=== PATIENT | female | born 1935 | race Caucasian/White ===

== ENCOUNTER 2022-03-04 18:45 | Emergency (ER) | payer MEDICARE, SELFPAY ==
[2022-03-04] VITALS (7 sets, daily range): BP systolic 134–170; BP diastolic 66–78; PULSE 69–74; RESP 18; TEMP 36.8; O2SAT 94–98
--- NOTE | 2022-03-04 18:56 | DI.RAD.S_ITS ---
PROCEDURE: XR WRIST RT MIN 3V INDICATIONS: Wrist pain post fall TECHNIQUE: 4 views of the wrist were acquired. COMPARISON: None. FINDINGS: Bones: On the lateral view there is a lucency in the distal radius which extends to the articular surface and is suspicious for fracture. This is not seen on the other views. No fractures or dislocations. No suspicious bony lesions. Scaphoid view: Intact scaphoid. Soft tissues: No suspicious soft tissue calcifications. IMPRESSION: Suspected right distal radius fracture. Dictated by: Alex Nava M.D. on 03/04/2022 at 20:32 Approved by: Alex Nava M.D. on 03/04/2022 at 20:34
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
== END 2022-03-04 21:20 | disposition home or self-care (01) ==
PROVIDERS: Emergency Provider Emergency Medicine; PCP Nurse Practitioner Family
DX: S60.211A Contusion of right wrist, initial encounter (principal); W19.XXXA Unspecified fall, initial encounter; F03.90 Unspecified dementia, unspecified severity, without behavioral disturbance, psychotic disturbance, mood disturbance, and anxiety
CPT/HCPCS: 73110; 99281; 99283

== ENCOUNTER → 2022-03-22 11:47 | Outpatient (CLI) | payer MEDICARE, SELFPAY ==
[2022-03-22 13:10] LABS: Add Manual Diff / Slide Review NO; Basophils Absolute Auto 100 /uL (0-100); Basophils Percent Auto 1.1 % (0-2); Eosinophils Absolute Auto 300 /uL (0-450); Eosinophils Percent Auto 4.9 % (2-4); Hematocrit 33.2 % (36-46); Hemoglobin 11.3 g/dL (12.0-16.0); Lymphocytes Absolute Auto 600 /uL (1100-4500); Lymphocytes Percent Auto 10.6 % (25-40); Mean Corpuscular Hemoglobin 31.3 PG (26-34); Monocytes Absolute Auto 700 /uL (0-900); Monocytes Percent Auto 12.6 % (3-14); Neutrophils Absolute Auto 4200 /uL (1500-7000); Neutrophils Percent Auto 70.8 % (50-75); Platelet Count 199 X10^3/uL (150-400); Red Blood Cell Count 3.61 X10^6/uL (4.0-5.2); Red Cell Distribution Width 14.7 % (11.6-14.8); White Blood Cell Count 5.9 X10^3/uL (4.5-11.0)
[2022-03-22 13:26] LABS: Alanine Aminotransferase 14 IU/L (<35); Albumin 3.2 g/dL (3.5-5.0); Alkaline Phosphatase 84 U/L (38-126); Aspartate Aminotransferase 25 IU/L (14-36); BUN Creatinine Ratio 20.5 (6-22); Bilirubin Total 0.4 mg/dL (0.2-1.3); Blood Urea Nitrogen 36 mg/dL (7-17); Calcium 9.3 mg/dL (8.4-10.2); Carbon Dioxide 34 mmol/L (22-32); Chloride 100 mmol/L (98-107); Estimated Glomerular Filt Rate 28 mL/min (>60); Globulin 3.1 g/dL (1.7-4.1); Glucose 73 mg/dL (80-110); HEMOLYSIS < 15 (0-50); Potassium 4.7 mmol/L (3.4-5.1); Sodium 135 mmol/L (137-145); Total Protein 6.3 g/dL (6.3-8.2)
[2022-03-22 14:02] LABS: Thyroid Stimulating Hormone 1.57 uIU/mL (0.47-4.68)
[2022-03-22 14:12] LABS: Vitamin B12 311 pg/mL (239-931)
== END ==
PROVIDERS: PCP Nurse Practitioner Family; Referring Provider Nurse Practitioner Family; Visit Provider Nurse Practitioner Family
DX: D64.9 Anemia, unspecified (principal); R41.0 Disorientation, unspecified
CPT/HCPCS: 36415; 80053; 82607; 84443; 85025

== ENCOUNTER 2022-12-14 15:52 | Emergency (ER) | payer MEDICARE, SELFPAY ==
[2022-12-14] VITALS (8 sets, daily range): BP systolic 112–136; BP diastolic 56–68; PULSE 52–61; RESP 16–20; TEMP 36.1–36.5; O2SAT 93–97
--- NOTE | 2022-12-14 16:56 | PC.NURSE ---
Patient is Comfort Measures, discussed expectations with son, states his focus is on finding potential acute problems with blood work, possible IV fluids for dehydration, and urine sample. Son is not interested in potential scans. Pt is oriented to self and resides in a memory care unit.
[2022-12-14 18:14] LABS: Add Manual Diff / Slide Review NO; Basophils Absolute Auto 0 /uL (0-100); Basophils Percent Auto 0.7 % (0-2); Eosinophils Absolute Auto 200 /uL (0-450); Eosinophils Percent Auto 2.1 % (2-4); Hematocrit 36.5 % (36-46); Lymphocytes Absolute Auto 600 /uL (1100-4500); Lymphocytes Percent Auto 8.7 % (25-40); Mean Corpuscular Hemoglobin 31.3 PG (26-34); Mean Corpuscular Volume 94.7 fL (80-100); Monocytes Absolute Auto 800 /uL (0-900); Monocytes Percent Auto 10.6 % (3-14); Neutrophils Absolute Auto 5800 /uL (1500-7000); Neutrophils Percent Auto 77.9 % (50-75); Platelet Count 190 X10^3/uL (150-400); Red Blood Cell Count 3.85 X10^6/uL (4.0-5.2); Red Cell Distribution Width 14.1 % (11.6-14.8); White Blood Cell Count 7.4 X10^3/uL (4.5-11.0)
[2022-12-14 18:22] LABS: HEMOLYSIS < 15 (0-50)
[2022-12-14 18:34] LABS: Alanine Aminotransferase 21 IU/L (<35); Albumin 3.6 g/dL (3.5-5.0); Alkaline Phosphatase 83 U/L (38-126); Aspartate Aminotransferase 26 IU/L (14-36); BUN Creatinine Ratio 17.9 (6-22); Bilirubin Total 0.7 mg/dL (0.2-1.3); Blood Urea Nitrogen 39 mg/dL (7-17); Calcium 9.6 mg/dL (8.4-10.2); Carbon Dioxide 27 mmol/L (22-32); Chloride 104 mmol/L (98-107); Creatine Kinase 81 U/L (30-135); Estimated Glomerular Filt Rate 21 mL/min (>60); Globulin 3.5 g/dL (1.7-4.1); Glucose 128 mg/dL (80-110); Lipase 280 U/L (23-300); Magnesium 2.1 mg/dL (1.6-2.3); Potassium 4.9 mmol/L (3.4-5.1); Sodium 137 mmol/L (137-145); Total Protein 7.1 g/dL (6.3-8.2)
[2022-12-14 18:45] LABS: Troponin I 0.028 ng/mL (0.01-0.034)
--- NOTE | 2022-12-14 19:40 | ED.SYNCOPE ---
HPI - Syncope General Chief Complaint: Syncope Stated Complaint: Unresponsive Time Seen by Provider: 12/14/22 19:40 Source: patient Mode of arrival: Ambulatory Limitations: no limitations History of Present Illness HPI narrative: Patient is a 87-year-old female history of dementia lives at [facility]. She was out in the atrium ?sending herself? when she passed out. Staff reported that she was unresponsive however EMS found her quite responsive. She has no complaints she did not fall or hit her head she is not on any anticoagulation. No fever no complaints. After waiting in the emergency department for 4-1/2 hours son states that she is back to her normal state of health and is ready to go. She seems to be moving all of her extremities she is quite hard of hearing and overall an extremely poor historian most history is from chart and son. Related Data Allergies Allergy/AdvReac Type Severity Reaction Status Date / Time amlodipine Allergy Unknown Verified 12/14/22 16:08 lisinopril Allergy Unknown Verified 12/14/22 16:08 metoprolol Allergy Unknown Verified 12/14/22 16:08 propofol Allergy Unknown Verified 12/14/22 16:08 valsartan Allergy Unknown Verified 12/14/22 16:08 Exam Initial Vital Signs Initial Vital Signs: Vital Signs Temperature 96.9 F L 12/14/22 16:02 Pulse Rate 52 L 12/14/22 16:02 Respiratory Rate 16 12/14/22 16:02 Blood Pressure 136/62 12/14/22 16:02 Pulse Oximetry 95 12/14/22 16:02 Oxygen Delivery Method Room Air 12/14/22 16:02 GENERAL: Alert elderly hard of hearing 87-year-old, reaching off the gurney trying to get a blanket off the floor HEENT: Head atraumatic,EOMI, pupils reactive, face symmetric, moist mucous membranes CARDIOVASCULAR: Regular rate and rhythm without murmurs, rubs or gallops. RESPIRATORY: Breath sounds equal bilaterally, no wheezes rales or rhonchi. ABDOMEN: Soft, nontender. Normoactive bowel sounds all 4 quadrants. No guarding or rebound. EXTREMITIES: Normal range of motion, no clubbing or edema. Neurovascularly intact NEUROLOGICAL: Moving all extremity SKIN: Warm, dry, no laceration, no petechiae, no rashes or lesions. Course Orders Ordered: ED Orders 12/14/22 17:30 EKG-12 Lead Stat 12/14/22 17:58 Complete Blood Count AUTO DIFF Stat Comprehensive Metabolic Panel Stat Lipase Stat Magnesium Stat Troponin & CK Cardiac Panel Stat Vital Signs Vital signs: Vital Signs - 8 hr 12/14/22 16:02 12/14/22 16:11 12/14/22 16:15 Temperature 96.9 F L 97.7 F Pulse Rate 52 L 55 L Respiratory Rate 16 18 Blood Pressure 136/62 Pulse Oximetry 95 93 Oxygen Delivery Method Room Air Room Air 12/14/22 16:31 12/14/22 17:35 12/14/22 18:00 Temperature Pulse Rate 61 60 57 L Respiratory Rate 20 18 Blood Pressure 119/56 L 112/59 L 121/60 Pulse Oximetry 94 96 97 Oxygen Delivery Method Room Air Room Air Room Air 12/14/22 19:00 Temperature Pulse Rate 60 Respiratory Rate 20 Blood Pressure 132/60 Pulse Oximetry 97 Oxygen Delivery Method Room Air MDM - Syncope Lab Data 12/14/22 17:58 12/14/22 17:58 Labs: Lab Results 12/14/22 12/14/22 Range/Units 17:58 17:58 WBC 7.4 (4.5-11.0) X10^3/uL RBC 3.85 L (4.0-5.2) X10^6/uL Hgb 12.0 (12.0-16.0) g/dL Hct 36.5 (36-46) % MCV 94.7 (80-100) fL MCH 31.3 (26-34) PG MCHC 33.0 (30-36) % RDW 14.1 (11.6-14.8) % Plt Count 190 (150-400) X10^3/uL Neut % (Auto) 77.9 H (50-75) % Lymph % (Auto) 8.7 L (25-40) % [place] % (Auto) 10.6 (3-14) % Eos % (Auto) 2.1 (2-4) % Baso % (Auto) 0.7 (0-2) % Neut # (Auto) 5800 (9997-9342) /uL Lymph # (Auto) 600 L (8804-9013) /uL [place] # (Auto) 800 (0-900) /uL Eos # (Auto) 200 (0-450) /uL Baso # (Auto) 0 (0-100) /uL Sodium 137 (137-145) mmol/L Potassium 4.9 (3.4-5.1) mmol/L Chloride 104 (98-107) mmol/L Carbon Dioxide 27 (22-32) mmol/L BUN 39 H (7-17) mg/dL Creatinine 2.18 H (0.52-1.04) mg/dL Estimated GFR 21 L (>60) mL/min BUN/Creatinine Ratio 17.9 (6-22) Glucose 128 H (80-110) mg/dL Calcium 9.6 (8.4-10.2) mg/dL Magnesium 2.1 (1.6-2.3) mg/dL Total Bilirubin 0.7 (0.2-1.3) mg/dL AST 26 (14-36) IU/L ALT 21 (<35) IU/L Alkaline Phosphatase 83 (38-126) U/L Total Creatine Kinase 81 (30-135) U/L CK-MB (CK-2) TNP CK-MB (CK-2) Rel Index TNP Troponin I 0.028 (0.01-0.034) ng/mL Total Protein 7.1 (6.3-8.2) g/dL Albumin 3.6 (3.5-5.0) g/dL Globulin 3.5 (1.7-4.1) g/dL Albumin/Globulin Ratio 1.0 (1.0-2.8) Lipase 280 (23-300) U/L ECG Data Interpretation: Normal sinus rhythm rate 59 OH interval 164 QRS 94 QTC 460 MDM Narrative Medical decision making narrative: Patient is an 87-year-old female history of dementia presents today after syncopal/unresponsive episode. Details about the event are overall very minimal. However son states patient is back at baseline there is no evidence of UTI no electrolyte abnormality or significant leukocytosis. She is found to have creatinine of 2.18, 1 year ago she would a creatinine of 1.76. Possible mild dehydration versus natural progression of chronic kidney disease. She is not on anticoagulation there is no history of head trauma moving all extremities no need for head CT at this time. Her vitals are stable she is not tachycardic though it does appear she is on atenolol she is not hypotensive. Seems back to her normal baseline status recommended close follow-up son is happy to take her back to [facility] memory care Discharge Plan Departure Patient Disposition: Home Clinical Impression: Near syncope Instructions: DI for Syncope in Adults (Fainting) Activity Restrictions/Additional Instructions: *You have been diagnosed with near syncope *What to do: Blood work today is overall reassuring. *Continue to take medications as directed *Follow up with your primary care provider in 2-3 days or call [phone] *Return to ER if you should have recurrent episode increased confusion combativeness or any new, worsening or concerning symptoms Referrals: Denise Saenz ARNP [Primary Care Provider] - Stand Alone Forms: Patient Portal/API
== END 2022-12-14 20:16 | disposition home or self-care (01) ==
PROVIDERS: Emergency Medicine; Emergency Provider Emergency Medicine; PCP Nurse Practitioner Family
DX: R55 Syncope and collapse (principal); F03.90 Unspecified dementia, unspecified severity, without behavioral disturbance, psychotic disturbance, mood disturbance, and anxiety; R07.9 Chest pain, unspecified; Z79.899 Other long term (current) drug therapy
CPT/HCPCS: 36415; 80053; 82550; 83690; 83735; 84484; 85025; 93005; 99283

== ENCOUNTER 2023-01-17 12:23 | Emergency (ER) | payer MEDICARE, SELFPAY ==
[2023-01-17] VITALS (13 sets, daily range): BP systolic 123–192; BP diastolic 57–77; PULSE 51–59; RESP 12–24; TEMP 35.9; O2SAT 95–100
--- NOTE | 2023-01-17 12:32 | ED_ITS ---
HPI - Syncope General Chief Complaint: Unresponsive Stated Complaint: Syncope Time Seen by Provider: 01/17/23 12:25 History of Present Illness HPI narrative: Code kya called overhead in the hospital. Patient was in the outpatient laboratory studies having laboratory studies done. Uncertain if patient was NPO last night for this test. Patient was unresponsive according to staff. On arrival patient is able open her eyes on verbal cue. She was diaphoretic. Blood sugar 95. Son is at bedside. He brought patient to the hospital for blood testing. Patient is DNR DNI with selective treatments he states. Patient was seen here December 14, 2022, last month for syncopal episode. No CT head imaging done. Son denies any recent illness. Patient is from [facility], patient has dementia for the past 8 years Related Data Allergies Allergy/AdvReac Type Severity Reaction Status Date / Time amlodipine Allergy Unknown Verified 01/17/23 12:25 lisinopril Allergy Unknown Verified 01/17/23 12:25 metoprolol Allergy Unknown Verified 01/17/23 12:25 propofol Allergy Unknown Verified 01/17/23 12:25 valsartan Allergy Unknown Verified 01/17/23 12:25 Review of Systems Review of Systems Narrative: GENERAL: negative chills, fatigue, malaise, fever, sweats. HEENT: negative sinus pain, ear pain, sore throat RESPIRATORY: negative dyspnea, cough CARDIOVASCULAR: negative chest pain, palpitations, positive syncope GASTROINTESTINAL: negative nausea, vomiting, abdominal pain : negative dysuria, frequency, hematuria MUSCULOSKELETAL: negative muscle or bony pain SKIN: negative rash, skin lesions NEUROLOGIC: negative weakness, numbness ROS Unobtainable: All systems reviewed & are unremarkable except as noted in HPI and below Exam Narrative Exam Narrative: GENERAL: in no distress, not toxic not dyspneic HEAD: Normocephalic. EYES: Pupils equal round ENT: Mucous membranes moist. NECK: Trachea midline. CARDIOVASCULAR: Regular rate and rhythm without murmurs RESPIRATORY: Clear to auscultation. Breath sounds equal bilaterally. No wheezes, rales, or rhonchi. GASTROINTESTINAL: Abdomen soft, non-tender EXTREMITIES: No gross deformities. BACK: No flank tenderness. NEURO: At this time patient has improved markedly on arrival to the emergency department from outpatient laboratory department. Patient is interacting but very somnolent. Awakes easily and does follow commands. Answers to her name. 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 SKIN: Warm and dry PSYCH: Not anxious, is cooperative Initial Vital Signs Initial Vital Signs: Vital Signs Pulse Rate 55 L 01/17/23 12:24 Respiratory Rate 16 01/17/23 12:24 Pulse Oximetry 98 01/17/23 12:24 Course Orders Ordered: Discontinued Medications Fosfomycin Tromethamine (Fosfomycin 3 Gm Packet) 3 gm PO NOW ONE Stop: 01/17/23 15:08 Last Admin: 01/17/23 15:20 Dose: 3 gm Documented By: LAURYN Vital Signs Vital signs: Vital Signs - 8 hr 01/17/23 12:25 01/17/23 12:24 01/17/23 12:30 Temperature 96.6 F L Pulse Rate 56 L 55 L 58 L Respiratory Rate 12 16 14 Blood Pressure 155/71 H Pulse Oximetry 97 98 Oxygen Delivery Method Nasal Cannula Oxygen Flow Rate 3 01/17/23 12:30 01/17/23 12:30 01/17/23 12:40 Temperature Pulse Rate 54 L 54 L Respiratory Rate 14 17 Blood Pressure 123/57 L Pulse Oximetry 99 99 Oxygen Delivery Method Room Air Oxygen Flow Rate 01/17/23 12:50 01/17/23 13:00 01/17/23 14:22 Temperature Pulse Rate 57 L 59 L Respiratory Rate 15 20 Blood Pressure 192/77 H Pulse Oximetry 97 99 Oxygen Delivery Method Room Air Oxygen Flow Rate 01/17/23 14:30 Temperature Pulse Rate 54 L Respiratory Rate 24 Blood Pressure Pulse Oximetry 95 Oxygen Delivery Method Room Air Oxygen Flow Rate MDM - Syncope Lab Data 01/17/23 12:25 01/17/23 12:25 Labs: Lab Results 01/17/23 01/17/23 01/17/23 Range/Units 12:25 12:25 12:25 WBC 7.3 (4.5-11.0) X10^3/uL RBC 4.41 (4.0-5.2) X10^6/uL Hgb 13.7 (12.0-16.0) g/dL Hct 40.7 (36-46) % MCV 92.2 (80-100) fL MCH 30.9 (26-34) PG MCHC 33.5 (30-36) % RDW 13.4 (11.6-14.8) % Plt Count 314 (150-400) X10^3/uL Neut % (Auto) 67.2 (50-75) % Lymph % (Auto) 20.1 L (25-40) % [place] % (Auto) 7.9 (3-14) % Eos % (Auto) 3.9 (2-4) % Baso % (Auto) 0.9 (0-2) % Neut # (Auto) 4900 (3073-3489) /uL Lymph # (Auto) 1500 (8337-9701) /uL [place] # (Auto) 600 (0-900) /uL Eos # (Auto) 300 (0-450) /uL Baso # (Auto) 100 (0-100) /uL PT 11.5 (10.1-12.7) SECONDS INR 1.0 (0.9-1.3) APTT 28 (26-36) SECONDS Sodium 135 L (137-145) mmol/L Potassium 3.6 (3.4-5.1) mmol/L Chloride 100 (98-107) mmol/L Carbon Dioxide 27 (22-32) mmol/L BUN 41 H (7-17) mg/dL Creatinine 2.14 H (0.52-1.04) mg/dL Estimated GFR 22 L (>60) mL/min BUN/Creatinine Ratio 19.2 (6-22) Glucose 126 H (80-110) mg/dL Calcium 10.1 (8.4-10.2) mg/dL Total Bilirubin 0.5 (0.2-1.3) mg/dL AST 27 (14-36) IU/L ALT 17 (<35) IU/L Alkaline Phosphatase 77 (38-126) U/L Total Creatine Kinase 39 (30-135) U/L CK-MB (CK-2) TNP CK-MB (CK-2) Rel Index TNP Troponin I < 0.012 (0.01-0.034) ng/mL Total Protein 7.8 (6.3-8.2) g/dL Albumin 3.8 (3.5-5.0) g/dL Globulin 4.0 (1.7-4.1) g/dL Albumin/Globulin Ratio 1.0 (1.0-2.8) Urine Color Urine Appearance Urine pH (4.5-8.0) Ur Specific [place] (1.000-1.035) Urine Protein (Negative) Urine Glucose (UA) (Negative) g/dL Urine Ketones (NEGATIVE) Urine Occult Blood (Negative) Urine Nitrate (Negative) Urine Bilirubin (NEGATIVE) Urine Urobilinogen (0.2) E.U./dL Ur Leukocyte Esterase (NEGATIVE) Urine RBC (0-5/HPF) Urine WBC (0-5/HPF) Ur Squamous Epith Cells (0-5/HPF) Urine Bacteria (None) Ur Culture Indicated? Chlamy pneumoniae PCR (Not Detect) Adenovirus (PCR) (Not Detect) B. pertussis DNA (PCR) (Not Detecte) B.parapertussis DNA PCR (Not Detecte) Coronavirus OC43 (PCR) (Not Detect) Coronavirus HKU1 (PCR) (Not Detect) Coronavirus 229E (PCR) (Not Detect) SARS-CoV-2 (PCR) (Not Detecte) Coronavirus NL63 (PCR) (Not Detect) Human Metapneumovir PCR (Not Detect) Influenza Type A (PCR) (Not Detect) Influenza Type B (PCR) (Not Detect) M. pneumoniae (PCR) (Not Detect) Parainfluenza 1 (PCR) (Not Detect) Parainfluenza 2 (PCR) (Not Detect) Parainfluenza 3 (PCR) (Not Detect) Parainfluenza 4 (PCR) (Not Detect) RSV (PCR) (Not Detect) Entero/Rhino (PCR) (Not Detect) 01/17/23 01/17/23 Range/Units 13:00 14:19 WBC (4.5-11.0) X10^3/uL RBC (4.0-5.2) X10^6/uL Hgb (12.0-16.0) g/dL Hct (36-46) % MCV (80-100) fL MCH (26-34) PG MCHC (30-36) % RDW (11.6-14.8) % Plt Count (150-400) X10^3/uL Neut % (Auto) (50-75) % Lymph % (Auto) (25-40) % [place] % (Auto) (3-14) % Eos % (Auto) (2-4) % Baso % (Auto) (0-2) % Neut # (Auto) (2466-8644) /uL Lymph # (Auto) (6254-3135) /uL [place] # (Auto) (0-900) /uL Eos # (Auto) (0-450) /uL Baso # (Auto) (0-100) /uL PT (10.1-12.7) SECONDS INR (0.9-1.3) APTT (26-36) SECONDS Sodium (137-145) mmol/L Potassium (3.4-5.1) mmol/L Chloride (98-107) mmol/L Carbon Dioxide (22-32) mmol/L BUN (7-17) mg/dL Creatinine (0.52-1.04) mg/dL Estimated GFR (>60) mL/min BUN/Creatinine Ratio (6-22) Glucose (80-110) mg/dL Calcium (8.4-10.2) mg/dL Total Bilirubin (0.2-1.3) mg/dL AST (14-36) IU/L ALT (<35) IU/L Alkaline Phosphatase (38-126) U/L Total Creatine Kinase (30-135) U/L CK-MB (CK-2) CK-MB (CK-2) Rel Index Troponin I (0.01-0.034) ng/mL Total Protein (6.3-8.2) g/dL Albumin (3.5-5.0) g/dL Globulin (1.7-4.1) g/dL Albumin/Globulin Ratio (1.0-2.8) Urine Color Yellow Urine Appearance Clear Urine pH 5.0 (4.5-8.0) Ur Specific [place] 1.020 (1.000-1.035) Urine Protein Negative (Negative) Urine Glucose (UA) Negative (Negative) g/dL Urine Ketones Negative (NEGATIVE) Urine Occult Blood Negative (Negative) Urine Nitrate Negative (Negative) Urine Bilirubin Negative (NEGATIVE) Urine Urobilinogen 0.2 (0.2) E.U./dL Ur Leukocyte Esterase 1+ H (NEGATIVE) Urine RBC None seen (0-5/HPF) Urine WBC 5-10/hpf H (0-5/HPF) Ur Squamous Epith Cells 1-5 /hpf (0-5/HPF) Urine Bacteria Few (2-10) H (None) Ur Culture Indicated? Specimen cultured Chlamy pneumoniae PCR Not detected (Not Detect) Adenovirus (PCR) Not detected (Not Detect) B. pertussis DNA (PCR) Not detected (Not Detecte) B.parapertussis DNA PCR Not detected (Not Detecte) Coronavirus OC43 (PCR) Not detected (Not Detect) Coronavirus HKU1 (PCR) Not detected (Not Detect) Coronavirus 229E (PCR) Not detected (Not Detect) SARS-CoV-2 (PCR) Not detected (Not Detecte) Coronavirus NL63 (PCR) Not detected (Not Detect) Human Metapneumovir PCR Not detected (Not Detect) Influenza Type A (PCR) Not detected (Not Detect) Influenza Type B (PCR) Not detected (Not Detect) M. pneumoniae (PCR) Not detected (Not Detect) Parainfluenza 1 (PCR) Not detected (Not Detect) Parainfluenza 2 (PCR) Not detected (Not Detect) Parainfluenza 3 (PCR) Not detected (Not Detect) Parainfluenza 4 (PCR) Not detected (Not Detect) RSV (PCR) Not detected (Not Detect) Entero/Rhino (PCR) Not detected (Not Detect) Point of Care Testing Glucose POC 95 MDM Narrative Medical decision making narrative: Santi boland called overhead in the hospital. Patient was in the outpatient laboratory studies having laboratory studies done. Uncertain if patient was NPO last night for this test. Patient was unresponsive according to staff. On arrival patient is able open her eyes on verbal cue. She was diaphoretic. Blood sugar 95. Son is at bedside. He brought patient to the hospital for blood testing. Patient is DNR DNI with selective treatments he states. Patient was seen here December 14, 2022, last month for syncopal episode. No CT head imaging done. Son denies any recent illness. Patient is from [facility], patient has dementia for the past 8 years Please note, our CAT scan is broken. We will have to transfer patient for angiogram head and neck After history and exam CBC CMP troponin urinalysis EKG CT angiogram head and neck MDM CC: Syncope Complicating co-morbidities: Previous episode 1 month ago here. Data collected from: Son Medical records reviewed: December 14, 2022 ER visit here Differential considered: Includes but not limited to stroke head bleed TIA UTI hypoglycemia arrhythmia Exam documented above, pertinent findings include: Patient responding to name and does follow instructions Lab Test results independently reviewed as above. Pertinent findings: WBC 7.3 hemoglobin 13.7 INR 1.0 sodium 135 BUN 41 creatinine 2.14 which is patient's baseline, GFR 22 which is at patient's baseline. Glucose 126 troponin less than 0.012 urinalysis negative ketones negative nitrate 1+ leukocyte esterase Independently reviewed EKG sinus bradycardia rate [address] elevation or depression Imaging studies independently reviewed: CT head no acute process Consultations: Son does not want admission or any consults at this time Treatments: None indicated this time Re-evaluations: 3:00 p.m.. Patient at baseline per son. She is interacting. At baseline confusion and dementia. Moving all 4 limbs. Please see discussion below I had with son. Patient is on Augmentin for cellulitis of the leg. However I reviewed with son and patient may be developing UTI despite being on Augmentin. He does agree for 1 dose fosfomycin. Kidney function reviewed and is at baseline Discussion: Appropriate for discharge. I have spoken with son regarding further testing observation admission. He does not want this for his mother. He states she would not want continued workup and admission here. He does understand there is a large differential for fainting. Including but not limited to heart attack stroke. He desires his mother's to be discharged home where she would be more comfortable. CT angiogram he does not want because of reviewing of renal function does not want to introduce chance of renal failure. Does not want MRI or echocardiogram either. Return precautions reviewed with him. He desires to be discharged. Diagnosis: Syncope 1:42 p.m.. I spoke with brenda, acting charge nurse over at [facility] Emergency Department. This patient was supposed to go for CT imaging only. Not through the emergency department. The fire department was requesting to drop patient off in the emergency department because the CT imaging weight time was 30 minutes. I informed this was not appropriate to drop patient into the emergency department at their facility. She agrees. I did not talk to anyone to accept for transfer. This was not in tension. We have a protocol because our CAT scan machine is broken. However, during their transport time to CT scan machine is operable now. Patient has returned to baseline before she left this facility. I have instructed for fire department to bring patient back here to complete the CT imaging if they could not wait for patient to have her exam done. She does not need to be dropped off in their emergency department. Discharge Plan Departure Patient Disposition: Home Clinical Impression: Syncope Instructions: DI for Syncope in Adults (Fainting) Activity Restrictions/Additional Instructions: See family doctor this week for re-evaluation. Return if worse if any questions or concerns. The source fainting is uncertain at this time. However laboratory studies and CT scan of the head is reassuring at this time. However there are many sources of fainting including but not limited to stroke/heart attack. You may continue home medications. Referrals: Denise Saenz ARNP [Primary Care Provider] - Stand Alone Forms: Patient Portal/API, Naloxone Standing Order [facility]
[2023-01-17 12:49] LABS: Add Manual Diff / Slide Review NO; Basophils Absolute Auto 100 /uL (0-100); Basophils Percent Auto 0.9 % (0-2); Eosinophils Absolute Auto 300 /uL (0-450); Eosinophils Percent Auto 3.9 % (2-4); Hematocrit 40.7 % (36-46); Hemoglobin 13.7 g/dL (12.0-16.0); Lymphocytes Absolute Auto 1500 /uL (1100-4500); Lymphocytes Percent Auto 20.1 % (25-40); Mean Corpuscular HGB Conc 33.5 % (30-36); Mean Corpuscular Hemoglobin 30.9 PG (26-34); Mean Corpuscular Volume 92.2 fL (80-100); Monocytes Absolute Auto 600 /uL (0-900); Monocytes Percent Auto 7.9 % (3-14); Neutrophils Absolute Auto 4900 /uL (1500-7000); Neutrophils Percent Auto 67.2 % (50-75); Platelet Count 314 X10^3/uL (150-400); Red Blood Cell Count 4.41 X10^6/uL (4.0-5.2); Red Cell Distribution Width 13.4 % (11.6-14.8); White Blood Cell Count 7.3 X10^3/uL (4.5-11.0)
--- NOTE | 2023-01-17 13:00 | PC.NURSE ---
Unable to assess sensation as pt was too confused to follow requests
--- NOTE | 2023-01-17 13:00 | PC.NURSE ---
1300: Transport arrives to take pt to get CT scan. PT son report pt more at baseline. Responds to requests for NIH scale assessment.
[2023-01-17 13:04] LABS: Prothrombin Time 11.5 SECONDS (10.1-12.7)
[2023-01-17 13:06] LABS: PTT Partial Thromboplastin Tim 28 SECONDS (26-36)
[2023-01-17 13:09] LABS: Alanine Aminotransferase 17 IU/L (<35); Albumin 3.8 g/dL (3.5-5.0); Alkaline Phosphatase 77 U/L (38-126); Aspartate Aminotransferase 27 IU/L (14-36); BUN Creatinine Ratio 19.2 (6-22); Bilirubin Total 0.5 mg/dL (0.2-1.3); Blood Urea Nitrogen 41 mg/dL (7-17); Calcium 10.1 mg/dL (8.4-10.2); Carbon Dioxide 27 mmol/L (22-32); Chloride 100 mmol/L (98-107); Creatine Kinase 39 U/L (30-135); Estimated Glomerular Filt Rate 22 mL/min (>60); Glucose 126 mg/dL (80-110); HEMOLYSIS < 15 (0-50); Potassium 3.6 mmol/L (3.4-5.1); Sodium 135 mmol/L (137-145); Total Protein 7.8 g/dL (6.3-8.2)
[2023-01-17 13:20] LABS: Troponin I < 0.012 ng/mL (0.01-0.034)
[2023-01-17 13:37] LABS: Appearance Urine UA CLEAR; Bilirubin Urine UA NEGATIVE (NEGATIVE); Color Urine UA YELLOW; Glucose Urine UA NEGATIVE (Negative); Ketones Urine UA NEGATIVE (NEGATIVE); Leukocyte Esterase Urine UA 1+ (NEGATIVE); Nitrite Urine UA NEGATIVE (Negative); Occult Blood Urine UA NEGATIVE (Negative); Protein Urine UA NEGATIVE (Negative); Urobilinogen Urine UA 0.2 E.U./dL (0.2)
[2023-01-17 13:43] LABS: Bacteria Urine Few (2-10); Culture Indicated Urine Specimen Cultured; RBC Urine None Seen (0-5/HPF); Squamous Epithelial Cell Urine 1-5 /HPF (0-5/HPF); WBC Urine 5-10/HPF (0-5/HPF)
--- NOTE | 2023-01-17 13:48 | PC.NURSE ---
12:17 Pt arrived to ED from lab draw. Responds to loud verbal ques/touch. States OW! With BP cuff inflation. Pt has baseline dementia and is from [facility]. Son at bedside. Son reports that pt had just gotten into chair to get labs drawn and pt head lowered and she slumped down in the chair and became unresponsive/diaphoretic. IV placed, labs drawn, EKG obtained. Vitals stable. Placed on 3L supportive O2.
--- NOTE | 2023-01-17 14:10 | DI.CT.S_ITS ---
PROCEDURE: CT STROKE INDICATIONS: code stroke TECHNIQUE: Noncontrast 4.5 mm thick angled axial sections acquired from the foramen magnum to the vertex, with coronal reformats. For radiation dose reduction, the following was used: automated exposure control, adjustment of mA and/or kV according to patient size. COMPARISON: None. FINDINGS: Image quality: Fair. CSF spaces: Basal cisterns are patent. No extra-axial fluid collections. Ventricles are normal in size and shape. Brain: No midline shift. No intracranial masses or hemorrhage. Prior left lacunar infarct, (2/). No area of hypodensity in a large vascular distribution to suggest acute infarction. Periventricular hypodensity consistent with chronic microvascular ischemic change. Intracranial atherosclerotic calcifications. Age-related parenchymal loss. Skull and face: Calvarium and visualized facial bones are intact, without suspicious lesions. Sinuses: Visualized sinuses and mastoids are clear. IMPRESSION: Image quality is fair. No acute intracranial abnormality. Chronic microvascular ischemic disease. Prior left lacunar infarct. Comment: Findings were discussed with Alec Thornton at time of dictation. This study fulfills neurological imaging criteria for inclusion or exclusion of acute stroke therapies based on available published neurological imaging guidelines. Dictated by: Porter Burdick M.D. on 01/17/2023 at 14:23 Approved by: Porter Burdick M.D. on 01/17/2023 at 14:27
--- NOTE | 2023-01-17 14:14 | PC.NURSE ---
PT returned from transport. Immediately taken to CT. Pt remains at baseline she was at when she left for transport. Baseline confusion, awakens to voice.
--- NOTE | 2023-01-17 14:34 | PC.NURSE ---
Addendum entered by Boaz Morrison R.N. 01/17/23 14:44: Patient returned at 1414. Original Note: Patient returns by EMS from transfer to [facility] for a STAT CT scan. Patient is alert to self and birthdate. Patient unaware of year and situation. Patient denies having any pain, but requests warm blankets. Patient was made comfortable in bed. Pt vital signs are stable, systolic blood pressure elevated due to confusion and movement during blood pressure.
[2023-01-17] MEDS: FOSFOMYCIN 3 GM PACKET PO (15:20)
[2023-01-17 15:39] LABS: Adenovirus Not Detected (Not Detect); B. parapertussis Not Detected (Not Detecte); Bordetella pertussis Not Detected (Not Detecte); Chlamydophila pneumoniae Not Detected (Not Detect); Coronavirus 229E Not Detected (Not Detect); Coronavirus HKU1 Not Detected (Not Detect); Coronavirus NL 63 Not Detected (Not Detect); Coronavirus OC43 Not Detected (Not Detect); Human Metapneumovirus Not Detected (Not Detect); Human Rhinovirus/Enterovirus Not Detected (Not Detect); Influenza A Not Detected (Not Detect); Influenza B Not Detected (Not Detect); Mycoplasma pneumoniae Not Detected (Not Detect); Parainfluenza Virus 1 Not Detected (Not Detect); Parainfluenza Virus 2 Not Detected (Not Detect); Parainfluenza Virus 3 Not Detected (Not Detect); Parainfluenza Virus 4 Not Detected (Not Detect); Respiratory Syncytial Virus Not Detected (Not Detect); SARS- CoV-2 Not Detected (Not Detecte)
--- NOTE | 2023-01-17 15:45 | PC.NURSE ---
Patient was dressed with assistance from RN and WOMEN'S SOCCER COACH. Patient able to stand at bedside and pivot to wheelchair. Patient has no complaints.
== END 2023-01-17 15:49 | disposition home or self-care (01) ==
PROVIDERS: Emergency Provider Emergency Medicine; PCP Nurse Practitioner Family
DX: R55 Syncope and collapse (principal); R00.1 Bradycardia, unspecified; Z20.822 Contact with and (suspected) exposure to COVID-19; F03.90 Unspecified dementia, unspecified severity, without behavioral disturbance, psychotic disturbance, mood disturbance, and anxiety; R07.9 Chest pain, unspecified
CPT/HCPCS: 36415; 70450; 80053; 81001; 82550; 82962; 84484; 85025; 85610; 85730; 87086; 87633; 92950; 93005; 99285; 99291

== ENCOUNTER → 2023-01-25 09:41 | Outpatient (CLI) | payer MEDICARE, SELFPAY | PROVIDERS: PCP Nurse Practitioner Family; Referring Provider Nurse Practitioner Family; Visit Provider Surgery | DX: I70.235 Atherosclerosis of native arteries of right leg with ulceration of other part of foot (principal); I70.245 Atherosclerosis of native arteries of left leg with ulceration of other part of foot; L97.516 Non-pressure chronic ulcer of other part of right foot with bone involvement without evidence of necrosis; L97.522 Non-pressure chronic ulcer of other part of left foot with fat layer exposed; F03.90 Unspecified dementia, unspecified severity, without behavioral disturbance, psychotic disturbance, mood disturbance, and anxiety; L08.9 Local infection of the skin and subcutaneous tissue, unspecified; M85.872 Other specified disorders of bone density and structure, left ankle and foot | CPT/HCPCS: 11042; 73630; 87070; 87075; 87205; 99204; 99214 ==

== ENCOUNTER → 2023-01-25 11:53 | Outpatient (CLI) | payer MEDICARE, SELFPAY ==
--- NOTE | 2023-01-25 11:54 | DI.RAD.S_ITS ---
PROCEDURE: XR FOOT RT MIN 3V INDICATIONS: Eval for osteo TECHNIQUE: 3 views of the foot were acquired. COMPARISON: None. FINDINGS: Bones: No fractures or dislocations. No suspicious bony lesions. In auto text osteopenia joint space narrowing, subchondral sclerosis and marginal osteophytes with remodeling noted particularly involving intertarsal joints of the hindfoot. No evidence of lytic lesion Soft tissues: No tibiotalar joint effusion. Achilles tendon appears normal. Fatty atrophy of the musculature noted. Diffuse small vessel atherosclerotic vascular calcification. 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 Osteopenia Approved by: Brodie Perez M.D. on 01/25/2023 at 17:18
== END ==
PROVIDERS: PCP Nurse Practitioner Family; Referring Provider Surgery; Visit Provider Surgery
DX: L08.9 Local infection of the skin and subcutaneous tissue, unspecified (principal); M85.872 Other specified disorders of bone density and structure, left ankle and foot
CPT/HCPCS: 73630

== ENCOUNTER → 2023-01-31 14:05 | Outpatient (CLI) | payer MEDICARE, SELFPAY | PROVIDERS: PCP Nurse Practitioner Family; Referring Provider Registered Nurse; Visit Provider Surgery | DX: I70.245 Atherosclerosis of native arteries of left leg with ulceration of other part of foot (principal); I70.235 Atherosclerosis of native arteries of right leg with ulceration of other part of foot; L97.522 Non-pressure chronic ulcer of other part of left foot with fat layer exposed; L97.512 Non-pressure chronic ulcer of other part of right foot with fat layer exposed; F02.80 Dementia in other diseases classified elsewhere, unspecified severity, without behavioral disturbance, psychotic disturbance, mood disturbance, and anxiety | CPT/HCPCS: 11042 ==

== ENCOUNTER → 2023-02-05 15:21 | Outpatient (CLI) | payer MEDICARE, SELFPAY ==
--- NOTE | 2023-02-05 15:22 | DI.US.S_ITS ---
PROCEDURE: US ARTERIAL DUPLEX LE BI INDICATIONS: WOUNDS ON BILATERAL EXTREMITIES TECHNIQUE: Color and pulse Doppler interrogation was performed of both lower extremity arterial systems, with image documentation. COMPARISON: None. FINDINGS: Right lower extremity: Common femoral artery: 75.9 cm/sec, with biphasic flow. Deep femoral artery: 92.5 cm/sec, with monophasic flow. Proximal superficial femoral artery: 76.4 cm/sec, with monophasic flow. Mid superficial femoral artery: 74.5 cm/sec, with monophasic flow. Distal superficial femoral artery: 81.0 cm/sec, with biphasic flow. Popliteal artery: 30.5 cm/sec, with biphasic flow. Posterior tibial artery: Not visualized Anterior tibial artery/dorsalis pedis: 16.2 cm/sec, with monophasic flow. Richard-scale imaging description: Dense atheromatous calcifications are present throughout the right lower extremity arteries. Monophasic waveforms suggest hemodynamically significant stenosis likely at the level of the superficial femoral artery. Left lower extremity: Common femoral artery: 109.3 cm/sec, with biphasic flow. Deep femoral artery: 64.8 cm/sec, with biphasic flow. Proximal superficial femoral artery: 96.4 cm/sec, with biphasic flow. Mid superficial femoral artery: 135.2 cm/sec, with biphasic flow. Distal superficial femoral artery: 69.4 cm/sec, with biphasic flow. Popliteal artery: 56.8 cm/sec, with biphasic flow. Posterior tibial artery: Not visualized Anterior tibial artery/dorsalis pedis: 36.6 cm/sec, with monophasic flow. Richard-scale imaging description: Dense atheromatous calcifications are present throughout the left lower extremity arteries. Elevated velocities within the mid SFA suggest hemodynamically significant stenosis. IMPRESSION: Findings suspicious for hemodynamically significant stenoses within the bilateral superficial femoral arteries. If further characterization is warranted and for therapeutic planning, CTA with bilateral lower extremity runoff is recommended. Dictated by: Maddie Lugo M.D. on 02/05/2023 at 17:16 Approved by: Maddie Lugo M.D. on 02/05/2023 at 17:18
== END ==
PROVIDERS: PCP Nurse Practitioner Family; Referring Provider Surgery; Visit Provider Surgery
DX: S81.802A Unspecified open wound, left lower leg, initial encounter (principal); S81.801A Unspecified open wound, right lower leg, initial encounter
CPT/HCPCS: 93925

== ENCOUNTER → 2023-02-14 11:05 | Outpatient (CLI) | payer MEDICARE, SELFPAY | PROVIDERS: PCP Nurse Practitioner Family; Referring Provider Registered Nurse; Visit Provider Surgery | DX: I70.235 Atherosclerosis of native arteries of right leg with ulceration of other part of foot (principal); I70.245 Atherosclerosis of native arteries of left leg with ulceration of other part of foot; L97.422 Non-pressure chronic ulcer of left heel and midfoot with fat layer exposed; L97.412 Non-pressure chronic ulcer of right heel and midfoot with fat layer exposed; F03.90 Unspecified dementia, unspecified severity, without behavioral disturbance, psychotic disturbance, mood disturbance, and anxiety | CPT/HCPCS: 99212; 99213 ==

== ENCOUNTER → 2023-02-19 10:06 | Outpatient (CLI) | payer MEDICARE, SELFPAY | PROVIDERS: PCP Nurse Practitioner Family; Referring Provider Nurse Practitioner Family; Visit Provider Surgery | DX: I70.235 Atherosclerosis of native arteries of right leg with ulceration of other part of foot (principal); I70.245 Atherosclerosis of native arteries of left leg with ulceration of other part of foot; L97.515 Non-pressure chronic ulcer of other part of right foot with muscle involvement without evidence of necrosis; L97.522 Non-pressure chronic ulcer of other part of left foot with fat layer exposed; F03.90 Unspecified dementia, unspecified severity, without behavioral disturbance, psychotic disturbance, mood disturbance, and anxiety; Z87.891 Personal history of nicotine dependence | CPT/HCPCS: 99213; 99214 ==

== ENCOUNTER → 2023-03-05 14:34 | Outpatient (CLI) | payer MEDICARE, SELFPAY | PROVIDERS: PCP Nurse Practitioner Family; Referring Provider Nurse Practitioner Family; Visit Provider Surgery | DX: L97.422 Non-pressure chronic ulcer of left heel and midfoot with fat layer exposed (principal); L97.412 Non-pressure chronic ulcer of right heel and midfoot with fat layer exposed; I70.235 Atherosclerosis of native arteries of right leg with ulceration of other part of foot; I70.245 Atherosclerosis of native arteries of left leg with ulceration of other part of foot | CPT/HCPCS: 99213 ==

== ENCOUNTER → 2023-03-21 12:58 | Outpatient (CLI) | payer MEDICARE, SELFPAY | PROVIDERS: PCP Nurse Practitioner Family; Referring Provider Nurse Practitioner Family; Visit Provider Surgery | DX: I70.235 Atherosclerosis of native arteries of right leg with ulceration of other part of foot (principal); I70.245 Atherosclerosis of native arteries of left leg with ulceration of other part of foot; L97.516 Non-pressure chronic ulcer of other part of right foot with bone involvement without evidence of necrosis; L53.9 Erythematous condition, unspecified; L97.522 Non-pressure chronic ulcer of other part of left foot with fat layer exposed; F03.90 Unspecified dementia, unspecified severity, without behavioral disturbance, psychotic disturbance, mood disturbance, and anxiety | CPT/HCPCS: 99213 ==

== ENCOUNTER → 2023-04-11 13:07 | Outpatient (CLI) | payer MEDICARE, SELFPAY | PROVIDERS: PCP Nurse Practitioner Family; Referring Provider Registered Nurse; Visit Provider Surgery | DX: I70.235 Atherosclerosis of native arteries of right leg with ulceration of other part of foot (principal); L97.516 Non-pressure chronic ulcer of other part of right foot with bone involvement without evidence of necrosis; L97.522 Non-pressure chronic ulcer of other part of left foot with fat layer exposed | CPT/HCPCS: 99213 ==

== ENCOUNTER → 2023-04-25 13:03 | Outpatient (CLI) | payer MEDICARE, SELFPAY | PROVIDERS: PCP Nurse Practitioner Family; Referring Provider Nurse Practitioner Family; Visit Provider Surgery | DX: I70.234 Atherosclerosis of native arteries of right leg with ulceration of heel and midfoot (principal); I70.244 Atherosclerosis of native arteries of left leg with ulceration of heel and midfoot; L97.422 Non-pressure chronic ulcer of left heel and midfoot with fat layer exposed; L97.412 Non-pressure chronic ulcer of right heel and midfoot with fat layer exposed; L97.516 Non-pressure chronic ulcer of other part of right foot with bone involvement without evidence of necrosis; I73.9 Peripheral vascular disease, unspecified; F03.90 Unspecified dementia, unspecified severity, without behavioral disturbance, psychotic disturbance, mood disturbance, and anxiety | CPT/HCPCS: 87070; 87075; 87077; 87147; 87186; 87205; 99214 ==

== ENCOUNTER → 2023-05-03 11:43 | Outpatient (CLI) | payer MEDICARE, SELFPAY | PROVIDERS: PCP Nurse Practitioner Family; Referring Provider Nurse Practitioner Family; Visit Provider Surgery | DX: L97.422 Non-pressure chronic ulcer of left heel and midfoot with fat layer exposed (principal); L97.412 Non-pressure chronic ulcer of right heel and midfoot with fat layer exposed; I73.9 Peripheral vascular disease, unspecified; L97.514 Non-pressure chronic ulcer of other part of right foot with necrosis of bone | CPT/HCPCS: 99213 ==

== ENCOUNTER → 2023-05-16 11:02 | Outpatient (CLI) | payer MEDICARE, SELFPAY | PROVIDERS: PCP Nurse Practitioner Family; Referring Provider Nurse Practitioner Family; Visit Provider Surgery | DX: I70.235 Atherosclerosis of native arteries of right leg with ulceration of other part of foot (principal); I70.245 Atherosclerosis of native arteries of left leg with ulceration of other part of foot; L97.516 Non-pressure chronic ulcer of other part of right foot with bone involvement without evidence of necrosis; L97.522 Non-pressure chronic ulcer of other part of left foot with fat layer exposed; M79.674 Pain in right toe(s); R60.0 Localized edema | CPT/HCPCS: 99213 ==